=== PATIENT | female | born 1935 | race African-American/Black ===

== ENCOUNTER 2017-03-23 15:34 | Observation (INO) | payer OTHER ==
[~2017-03-23] VITALS: Ht 170.2 cm; Wt 84.8 kg
--- NOTE | ~2017-03-23 | EKG ---
[place] [address] [place] [employer] [facility] [place] [address] ELECTROCARDIOGRAM REPORT Name: PINA GARCIAMARLENA Bocanegra Room #: 437-P On license of [facility]#: [id number] Admission: 03/23/17 Attend Phys: Earle Centeno MD Discharge: 03/24/17 Date of : 33 Report #: [id number] THIS REPORT FOR: //name// [facility] ED Test Date: 2017-03-23 Test Time: 16:25:03 Pat Name: ALEXANDER GARCIA Department: Room: [facility] Gender: F Internet Researcher: : 1935 Requested By: Narciso Gifford Order Number: [id number] MD: Neeraj Brown Measurements Intervals [place] Rate: 93 P: 57 UT: 163 QRS: 30 QRSD: 87 T: 43 QT: 427 QTc: 532 Interpretive Statements Sinus rhythm Frequent supraventricular complexes No previous ECG available for comparison Electronically Signed On 03-25-2017 12:40:08 CDT by Neeraj Brown [email or web address] <ELECTRONICALLY SIGNED> By: Neeraj Brown MD, [facility] 03/25/17 1240 1625 1625 Neeraj Brown MD, FACC /EPI
[2017-03-23 15:39] VITALS: BP 156/74
[2017-03-23 16:34] LABS: HEMATOCRIT 34.1 % (37.0-47.0); HEMOGLOBIN 11.1 gm/dL (12.0-15.0); MANUAL DIFF YES; MCH 24.7 pg (26.0-34.0); MCHC 32.4 g/dL (28.0-37.0); MCV 76.1 fL (80.0-100.0); PLATELET COUNT 307 thou/uL (150-400); RBC 4.48 mil/uL (4.20-5.00); RDW 13.9 % (10.5-14.5); WBC 8.2 thou/uL (4.0-11.0)
[2017-03-23 16:44] LABS: ANION GAP 8 mmol/L (7-16); BUN 12 mg/dL (7-18); CALCIUM 8.8 mg/dL (8.5-10.1); CHLORIDE 98 mmol/L (98-107); CO2 28 mmol/L (21-32); CREATININE 1.3 mg/dL (0.6-1.0); GLUCOSE 101 mg/dL (74-106); SODIUM 134 mmol/L (136-145)
[2017-03-23 16:54] LABS: ALBUMIN 3.2 g/dL (3.4-5.0); ALKALINE PHOSPHATASE 87 U/L (46-116); DIRECT BILIRUBIN < 0.1 mg/dL (<0.1-0.3); NT-PRO BRAIN NAT PEPTIDE 82 pg/mL (<300); SGOT 23 U/L (15-37); SGPT 20 U/L (30-65); TOTAL BILIRUBIN 0.3 mg/dL (<0.1-1.0); TOTAL PROTEIN 7.6 g/dL (6.4-8.2); TROPONIN-I < 0.04 ng/mL (<0.04-0.07)
[2017-03-23 17:00] LABS: ABSOLUTE NEUTROPHILS 4.8 thou/uL (1.4-8.2); TOTAL CELL COUNT 100
[2017-03-23 18:48] LABS: URINE BILIRUBIN NEGATIVE (Negative); URINE BLOOD 1+ (Negative); URINE COLOR YELLOW; URINE GLUCOSE-RANDOM* NEGATIVE (Negative); URINE KETONES NEGATIVE (Negative); URINE NITRITE NEGATIVE (Negative); URINE PROTEIN (DIPSTICK) NEGATIVE (Negative); URINE UROBILINOGEN 0.2 E.U./dl (0.2-1.0)
[2017-03-23 18:57] LABS: BACTERIA None Seen /HPF (None Seen); SQUAMOUS 0-3 Few /LPF (0-3); URINE RBC 3-10 Few /HPF (0-2); URINE WBC 0-5 Rare /HPF (0-5)
[2017-03-23 18:58] LABS: CASTS None Seen /LPF (None Seen); CRYSTALS None Seen /LPF (None Seen)
[2017-03-23 19:08] VITALS: BP 142/79
[2017-03-23 19:20] VITALS: BP 148/84
[2017-03-24 00:31] VITALS: BP 126/68
[2017-03-24 06:00] VITALS: BP 118/60
[2017-03-24 07:29] VITALS: BP 115/54
[2017-03-24] MEDS ORDERED: AZITHROMYCIN 2250 MG PO (10:34)
[2017-03-24] MEDS ORDERED: ACCUNEB SO1.25 MG/1 INH (10:34)
[2017-03-24] MEDS ORDERED: PREDNISONE 10 M10 MG PO (10:36)
[2017-03-24 12:51] VITALS: BP 115/54
[2017-03-24 13:44] VITALS: BP 115/54
== END 2017-03-24 14:08 | disposition home or self-care (01) ==
LOC: ER 15:34 → EDBD 15:34 → EROBS 17:50 → 4S 21:16
PROVIDERS: Nurse Practitioner
DX: J20.8 Acute bronchitis due to other specified organisms (principal); Z79.899 Other long term (current) drug therapy; Z79.2 Long term (current) use of antibiotics; J06.9 Acute upper respiratory infection, unspecified; Z90.710 Acquired absence of both cervix and uterus